=== PATIENT | male | born 1945 | race Two or more races ===

== ENCOUNTER 2020-09-19 06:00 | Day surgery (SDC) | payer OTHER | END 2020-09-19 09:40 | disposition home or self-care (01) | LOC: AMB-ENDOS 06:00 | PROVIDERS: ATTEND Surgery | DX: K62.89 Other specified diseases of anus and rectum (principal); K57.30 Diverticulosis of large intestine without perforation or abscess without bleeding; Z12.11 Encounter for screening for malignant neoplasm of colon ==

== ENCOUNTER 2020-11-27 11:30 | Inpatient (IN) | payer OTHER ==
[~2020-11-27] VITALS: Ht 167.6 cm; Wt 75.3 kg
[2020-12-15] MEDS ORDERED: AMOX-CLAV 875-1 EAC1 PO (15:13)
[2020-12-15] MEDS ORDERED: PANTOPRAZOLE SO40 MG PO (15:14)
[2020-12-15] MEDS ORDERED: INTESTINEX680 M1 PO (15:15)
== END 2020-12-15 18:13 | disposition home or self-care (01) | DRG 330 ==
LOC: SURH 11-30 05:32 → O/R 11-30 05:32 → SURH 11-30 07:00
PROVIDERS: ADMIT Surgery; ATTEND Surgery
PROC: 0DTP4ZZ Resection of Rectum, Percutaneous Endoscopic Approach (ICD-10-PCS; 2020-11-30)
PROC: 0DJD8ZZ Inspection of Lower Intestinal Tract, Via Natural or Artificial Opening Endoscopic (ICD-10-PCS; 2020-11-30)
PROC: 0DBN4ZZ Excision of Sigmoid Colon, Percutaneous Endoscopic Approach (ICD-10-PCS; principal; 2020-11-30 07:00)
PROC: 02HV33Z Insertion of Infusion Device into Superior Vena Cava, Percutaneous Approach (ICD-10-PCS; 2020-12-03)
PROC: 0W9G30Z Drainage of Peritoneal Cavity with Drainage Device, Percutaneous Approach (ICD-10-PCS; 2020-12-08)
DX: K57.32 Diverticulitis of large intestine without perforation or abscess without bleeding (principal); K56.690 Other partial intestinal obstruction; K68.11 Postprocedural retroperitoneal abscess; B95.2 Enterococcus as the cause of diseases classified elsewhere; Y83.8 Other surgical procedures as the cause of abnormal reaction of the patient, or of later complication, without mention of misadventure at the time of the procedure

== ENCOUNTER 2020-12-20 18:15 | Inpatient (IN) | payer OTHER ==
[~2020-12-20] VITALS: Ht 167.6 cm; Wt 68.9 kg
[~2020-12-20 18:15] MED LIST: AMOX-CLAV 875-1 EAC1 PO; INTESTINEX680 M1 PO; PANTOPRAZOLE SO40 MG PO
[2021-01-05] MEDS ORDERED: ULTRACET PO (14:28)
[2021-01-05] MEDS ORDERED: DICY20TA PO (14:29)
[2021-01-05] MEDS ORDERED: INTESTINEX680 M1 PO (14:29)
== END 2021-01-05 17:23 | disposition home or self-care (01) | DRG 862 ==
LOC: ER 18:15 → SURH 12-21 11:41
PROVIDERS: ADMIT Surgery; ATTEND Surgery
DX: T81.43XA Infection following a procedure, organ and space surgical site, initial encounter (principal); K65.1 Peritoneal abscess; T80.1XXA Vascular complications following infusion, transfusion and therapeutic injection, initial encounter; T80.818A Extravasation of other vesicant agent, initial encounter; B95.2 Enterococcus as the cause of diseases classified elsewhere; Z20.822 Contact with and (suspected) exposure to COVID-19; I80.8 Phlebitis and thrombophlebitis of other sites; Y83.8 Other surgical procedures as the cause of abnormal reaction of the patient, or of later complication, without mention of misadventure at the time of the procedure; K57.30 Diverticulosis of large intestine without perforation or abscess without bleeding

== ENCOUNTER 2022-01-02 05:40 | Day surgery (SDC) | payer OTHER ==
[~2022-01-02 05:40] MED LIST changes: +DICY20TA PO; +ULTRACET PO
== END 2022-01-02 13:05 | disposition home or self-care (01) ==
LOC: AMB-ENDOS 05:40 → CIR.AMB 08:45 → AMB-ENDOS 13:05
PROVIDERS: ATTEND Surgery
DX: K62.4 Stenosis of anus and rectum (principal); K57.30 Diverticulosis of large intestine without perforation or abscess without bleeding; K59.09 Other constipation; R14.1 Gas pain; Z20.822 Contact with and (suspected) exposure to COVID-19

== ENCOUNTER 2024-03-10 07:25 | Day surgery (SDC) | payer OTHER ==
[2024-03-10] MEDS ORDERED: DIPHENHYDRAMINE HCL 50 MG/ML VIAL 1ML IV ONE (11:15)
[2024-03-10] MEDS ORDERED: MIDAZOLAM HCL 2 MG/2 ML VIAL IV ONE (11:15)
[2024-03-10] MEDS ORDERED: fentaNYL CITRATE 50 MCG/ML AMPUL IV ONE (11:15)
== END 2024-03-10 12:35 | disposition home or self-care (01) ==
LOC: AMB-ENDOS 07:25
PROVIDERS: ATTEND Surgery
DX: K62.4 Stenosis of anus and rectum (principal); K63.89 Other specified diseases of intestine; K56.690 Other partial intestinal obstruction; K57.30 Diverticulosis of large intestine without perforation or abscess without bleeding